=== PATIENT | male | born 1960 | race Caucasian/White ===

== ENCOUNTER 2018-01-13 19:46 | Inpatient (IN) | payer MEDICARE, MEDICAID ==
[2018-01-13 21:41] LABS: EOSINOPHILE ABSOLUTE 0.2 Th/cmm (0.1-0.4); HEMATOCRIT 42.6 % (41.0-60); HEMOGLOBIN 14.4 gm/dL (12-16); LYMPHOCYTE ABSOLUTE 1.6 Th/cmm (1.5-3.0); MEAN CELL VOLUME 91.3 fl (80-99); MEAN CORPUSCULAR HEMOGLOBIN 30.7 pg (26.0-30.0); MEAN CORPUSCULAR HGB CONC 33.7 pg (28.0-36.0); MEAN PLATELET VOLUME 6.6 fl; NEUTROPHILE ABSOLUTE 2.7 Th/cmm (1.8-8.0); PLATELET COUNT 275 Th/cmm (150-400); RED BLOOD COUNT 4.67 Mil/cmm (4.30-5.70); RED CELL DISTRIBUTION WIDTH 12.2 % (11.5-20.0); WHITE BLOOD COUNT 5.5 Th/cmm (4.8-10.8)
[2018-01-13 22:00] LABS: ALB/GLOB RATIO 0.9 (1.0-1.8); ALBUMIN 3.5 gm/dL (4.2-5.5); ALKALINE PHOSPHATASE 79 U/L (34-104); ANION GAP 10.3 (7.0-16.0); BILIRUBIN,TOTAL 0.3 mg/dL (0.3-1.0); BUN - UREA NITROGEN 8 mg/dL (7-25); CALCIUM SERUM 9.1 mg/dL (8.6-10.3); CARBON DIOXIDE 27.9 mEq/L (21.0-31.0); CHLORIDE 102 mEq/L (98-107); CREATININE - SERUM 0.7 mg/dL (0.7-1.3); GFR AFRICAN-AMERICAN > 60.0 ml/min (>90); GFR NON AFRICAN-AMERICAN > 60.0 ml/min; GLUCOSE 105 mg/dL (70-105); MAGNESIUM 2.1 mg/dL (1.9-2.7); PHOSPHOROUS 3.3 mg/dL (2.5-5.0); POTASSIUM SERUM 4.2 mEq/L (3.5-5.1); SGOT 20 U/L (13-39); SGPT/ALT 34 U/L (7-52); SODIUM SERUM 136 mEq/L (136-145); TOTAL PROTEIN,SERUM 7.4 gm/dL (6.0-8.3)
[2018-01-13 22:41] LABS: BAND NEUTROPHILE 0 % (0-10); EOSINOPHIL 2 % (0-5); LYMPHOCYTE 26 % (20-50); MONOCYTE 20 % (2-10); NEUTROPHILS 52 % (40-80)
[2018-01-13] MEDS ORDERED: Lactated Ringer 1,000 ML IV ONE (22:54)
--- NOTE | 2018-01-13 22:56 | ED Physician Chart ---
ED Chief Complaint/HPI - Patient Information Date Seen:: 01/13/18 Time Seen:: 20:45 Chief Complaint:: poor po intake History of Present Illness:: poor po intake Allergies:: Allergies Allergy/AdvReac Type Severity Reaction Status Date / Time No Known Allergies Allergy Verified 01/13/18 20:45 Vitals:: Vital Signs - 8 hr 01/13/18 20:45 Temp 98.7 F HR 72 RR 18 BP 127/94 O2 Sat % 95 Historian:: Medical Records Review:: Nurse's Note Reviewed, Transfer documents Reviewed ED Review of Systems - Review of Systems General/Constitutional: No fever, No chills, No weight loss, No weakness, No diaphoresis, No edema, No loss of appetite, Other (poor po intake) Skin: No skin lesions, No rash, No bruising Head: No headache, No light-headedness Eyes: No loss of vision, No pain, No diplopia ENT: No earache, No nasal drainage, No sore throat, No tinnitus Neck: No neck pain, No swelling, No thyromegaly, No stiffness, No mass noted Cardio Vascular: No chest pain, No palpitations, No PND, No orthopnea, No edema Pulmonary: No SOB, No cough, No sputum, No wheezing GI: No nausea, No vomiting, No diarrhea, No pain, No melena, No hematochezia, No constipation, No hematemesis G/U: No dysuria, No frequency, No hematuria Musculoskeletal: No bone or joint pain, No back pain, No muscle pain Endocrine: No polyuria, No polydipsia Psychiatric: No prior psych history, No depression, No anxiety, No suicidal ideation Hematopoietic: No bruising, No lymphadenopathy Allergic/Immuno: No urticaria, No angioedema Neurological: No syncope, No focal symptoms, No weakness, No paresthesia, No headache, No seizure, No dizziness, No confusion, No vertigo ED Past Medical History - Past Medical History Obtainable: Yes Past Medical History: DM, Seizures, Other (POSTCONCUSSIONAL SYNDROME, CONTRACTED BILATERAL KNEE; SCHIZOPHRENIA; DM TYPE 2, LEGALLY BLIND, EPILEPSY, ENCEPALOPATHY, HX OF FALL.) Psychiatricy History: Schizophrenia Family Medical History - Family Member Mother History Unknown: Yes ED Physical Exam - Physical Examination General/Constitutional: Awake Other Gen/Cons comments:: chronic dysconjugate gaze (patient blind). Other Head comments:: L sided craniotomy scars Eyes: Lids, conjuctiva normal, PERRL Other Skin comments:: L sided craniotomy scars Neck: Nontender, No nuchal rigidity Respiratory: Nl effort/Exclusion, Clear to Auscultation, No Wheeze/Rhonchi/Rales Cardio Vascular: RRR, No murmur, gallop, rubs, NL S1 S2 GI: No tenderness/rebounding/guarding Extremities: No tenderness or effusion Other Extremities comments:: bilateral knee contractures. Misc: Normal back ED Labs/Radiology/EKG Results - Lab Results Results: Laboratory Tests 01/13/18 01/13/18 21:28 21:28 WBC 5.5 RBC 4.67 Hgb 14.4 Hct 42.6 MCV 91.3 MCH 30.7 H MCHC Differential 33.7 RDW 12.2 Plt Count 275 MPV 6.6 Add Manual Diff YES Band Neutrophils % 0 Neutrophils (Manual) 52 Lymphocytes 26 Monocytes 20 H Eosinophils 2 Sodium 136 Potassium 4.2 Chloride 102 Carbon Dioxide 27.9 Anion Gap 10.3 BUN 8 Creatinine 0.7 Est GFR ( Amer) > 60.0 Est GFR (Non-Af Amer) > 60.0 BUN/Creatinine Ratio 11.4 Glucose 105 Calcium 9.1 Phosphorus 3.3 Magnesium 2.1 Total Bilirubin 0.3 AST 20 ALT 34 Alkaline Phosphatase 79 Total Protein 7.4 Albumin 3.5 L Globulin 3.9 Albumin/Globulin Ratio 0.9 L ED Assessment - Assessment General Assessment: spoke with Dr. Rivas about this patient whom he will admit. ED Septic Shock - . Is Septic Shock (SBP<90, OR Lactate>4 mmol\L) present?: No - <6hrs of presentation: Vital Signs: Vital Signs - 8 hr 01/13/18 20:45 Temp 98.7 F HR 72 RR 18 BP 127/94 O2 Sat % 95 ED Reassessment (Disposition) - Reassessment Reassessment Condition:: Unchanged - Diagnosis Diagnosis:: Poor po intake POSTCONCUSSIONAL SYNDROME CONTRACTED BILATERAL KNEES SCHIZOPHRENIA DM TYPE 2 LEGALLY BLIND EPILEPSY ENCEPALOPATHY, HX OF FALL. - Patient Disposition Discharge/Transfer:: Acute Care w/in this hosp Admitted to:: Med/Surg Condition at Disposition:: Stable, Unchanged
[2018-01-14] MEDS: Lactated Ringer 1,000 ML IV SCH ×2 (01:00→13:02)
[2018-01-14 02:30] VITALS: BP 147/85
[2018-01-14] MEDS ORDERED: Non-Formulary Item 1 EA (Acetaminophen [Tylenol] 650 MG) PO PRN (05:25)
[2018-01-14 06:26] LABS: EOSINOPHILE ABSOLUTE 0.1 Th/cmm (0.1-0.4); HEMATOCRIT 43.3 % (41.0-60); HEMOGLOBIN 14.5 gm/dL (12-16); LYMPHOCYTE ABSOLUTE 1.7 Th/cmm (1.5-3.0); MEAN CELL VOLUME 91.7 fl (80-99); MEAN CORPUSCULAR HEMOGLOBIN 30.8 pg (26.0-30.0); MEAN CORPUSCULAR HGB CONC 33.6 pg (28.0-36.0); MEAN PLATELET VOLUME 6.6 fl; MONOCYTE ABSOLUTE 1.5 Th/cmm (0.3-1.0); NEUTROPHILE ABSOLUTE 5.4 Th/cmm (1.8-8.0); PLATELET COUNT 285 Th/cmm (150-400); RED BLOOD COUNT 4.72 Mil/cmm (4.30-5.70); RED CELL DISTRIBUTION WIDTH 12.2 % (11.5-20.0); WHITE BLOOD COUNT 8.7 Th/cmm (4.8-10.8)
[2018-01-14 06:49] LABS: ALB/GLOB RATIO 0.9 (1.0-1.8); ALBUMIN 3.6 gm/dL (4.2-5.5); ALKALINE PHOSPHATASE 73 U/L (34-104); BILIRUBIN,TOTAL 0.4 mg/dL (0.3-1.0); BUN - UREA NITROGEN 7 mg/dL (7-25); CALCIUM SERUM 9.1 mg/dL (8.6-10.3); CARBON DIOXIDE 24.1 mEq/L (21.0-31.0); CHLORIDE 103 mEq/L (98-107); CREATININE - SERUM 0.6 mg/dL (0.7-1.3); GFR AFRICAN-AMERICAN > 60.0 ml/min (>90); GFR NON AFRICAN-AMERICAN > 60.0 ml/min; GLUCOSE 90 mg/dL (70-105); POTASSIUM SERUM 4.1 mEq/L (3.5-5.1); SGOT 22 U/L (13-39); SGPT/ALT 34 U/L (7-52); SODIUM SERUM 136 mEq/L (136-145); TOTAL PROTEIN,SERUM 7.7 gm/dL (6.0-8.3)
[2018-01-14 07:57] LABS: BAND NEUTROPHILE 1 % (0-10); BASOPHIL 2 % (0-3); LYMPHOCYTE 21 % (20-50); MONOCYTE 17 % (2-10); NEUTROPHILS 59 % (40-80); PLATELET ESTIMATE ADEQUATE (NORMAL)
[2018-01-14] MEDS ORDERED: Non-Formulary Item 1 EA (Dextran 70/Hypromellose [Artificial Tears] 1 EACH) OP SCH (09:00)
[2018-01-14] MEDS: Multivitamin w/ Minerals Tab PO SCH (09:10)
[2018-01-14] MEDS: Polyvinyl Alcohol Ophth Soln 15 mL Bottle EACH EYE SCH ×2 (09:12→16:35)
[2018-01-15] MEDS: Lactated Ringer 1,000 ML IV SCH (06:45)
[2018-01-15] MEDS: Multivitamin w/ Minerals Tab PO SCH (09:04)
[2018-01-15] MEDS: Polyvinyl Alcohol Ophth Soln 15 mL Bottle EACH EYE SCH ×2 (09:04→16:29)
[2018-01-15] MEDS: D5-0.45NS 1,000 ML IV SCH ×2 (10:41→20:40)
--- NOTE | 2018-01-15 11:25 | History & Physical ---
ADMIT DATE: 01/13/2018 CHIEF COMPLAINT: Poor p.o. intake. HISTORY OF PRESENT ILLNESS: The patient is a 49-year-old white male who is a resident of a half-way facility. The patient was transferred over here due to poor p.o. intake. REVIEW OF SYSTEMS: See history of present illness. PAST MEDICAL HISTORY: Diabetes mellitus, seizure disorder, postconcussion syndrome, contracted bilateral knees, schizophrenia, legally blind, epilepsy, and encephalopathy. PAST SURGICAL HISTORY: Negative. FAMILY HISTORY: Noncontributory. MEDICATIONS: See medication reconciliation form. ALLERGIES: No known allergies. SOCIAL HISTORY: No reports of smoking, drinking, or IV drug use. The patient is a resident of a half-way facility. PHYSICAL EXAMINATION: GENERAL: The patient is awake, no acute distress. VITAL SIGNS: On admission is temperature 98.7, pulse 72, blood pressure 127/94, respiratory rate 18, O2 saturation 95% on room air. HEENT: Normocephalic and atraumatic. Extraocular movements are intact. Pupils are equal. Oropharynx is clear. Chronic disconjugate gaze. Craniotomy scars. NECK: Supple. No thyromegaly. No lymphadenopathy. CARDIAC: S1, S2. RESPIRATORY: Clear. No wheeze or rhonchi. GASTROINTESTINAL: Abdomen is soft, nontender. Positive bowel sounds. BACK: No tenderness. GENITOURINARY: No CVA tenderness. No suprapubic tenderness. EXTREMITIES: Equal pulses bilaterally. No cyanosis, clubbing, or edema. Bilateral knees contracted. NEUROLOGIC: Unable to assess due to the patient's dementia. LABORATORY DATA: On admission, Hematology: WBC 5.5, hemoglobin 14.4, hematocrit 42.6, platelet count of 225, 20% monocytes. Chemistry: Sodium 136, potassium 4.2, chloride 102, bicarbonate 27, anion gap 10, BUN 8, creatinine 0.7, GFR is more than 60. Glucose 105, calcium 9.1, phosphorus 3.3, mag 2.1, total bilirubin 0.3, AST 20, ALT 34, alkaline phosphatase 79, total protein 7.4, albumin 3.5, globulin 3.9. MICROBIOLOGY: No new microbiology results. RADIOLOGY: No new results. IMPRESSION: 1. Failure to thrive. 2. Postconcussion syndrome. 3. Contracted bilateral knees. 4. Schizophrenia. 5. Diabetes mellitus type 2. 6. Legally blind. 7. Epilepsy. 8. Encephalopathy. PLAN: The patient admitted to Med/Surg unit at [facility]. We will obtain Infectious Disease consultation. The patient is ordered for urine culture. JOB# [id number]
[2018-01-15 12:12] LABS: HEP A AB IGM Negative (Negative); HEP B CORE IGM Negative (Negative); HEP B SURFACE AG QL Negative (Negative); HEP C ANTIBODY >11.0 s/co ratio (0.0-0.9)
--- NOTE | 2018-01-16 00:17 | Progress Notes ---
DATE: 01/15/2018 SUBJECTIVE: The patient is awake. The patient is on IV fluids. The patient has been recommended for pureed diet. Per nursing services, the patient still has poor p.o. intake. PHYSICAL EXAMINATION: VITAL SIGNS: Temperature 97.2, pulse 66, blood pressure 149/87, pulse ox 97% on room air. CARDIOVASCULAR: S1 and S2. RESPIRATORY: Clear. ABDOMEN: Soft, positive bowel sounds. LABORATORY DATA: Hematology: WBC 8.7, hemoglobin 14.5, hematocrit 43.3, platelet count 285, 17% monocytes. Chemistry: Sodium 136, potassium 4.1, chloride 103, bicarb 24, anion gap 13, BUN 7, creatinine 0.6, GFR is more than 60, glucose 90, calcium 9.1, total bilirubin 0.4, AST 22, ALT 34, alkaline phosphatase 73, total protein 7.7, albumin 3.6, globulin 4.1. HIV test negative. Urine culture pending. ASSESSMENT: 1. Failure to thrive. 2. Hypoalbuminemia. 3. Postconcussion syndrome. 4. Bilateral knees contracted. 5. Schizophrenia. 6. Diabetes type 2. 7. Legal blindness. 8. Epilepsy. 9. Encephalopathy. PLAN: We will change IV fluids from lactated ringer to D5 half NS due to poor p.o. intake. We will obtain a GI consultation regarding poor p.o. intake. JOB# [id number] MTDD
--- NOTE | 2018-01-16 01:37 | Consultation ---
DATE OF CONSULTATION: 01/15/2018 REASON FOR CONSULTATION: Failure to thrive. HISTORY OF PRESENT ILLNESS: This consult was obtained through the request of Dr. Rivas for this 57-year-old with history of diabetes, seizure disorder, post-concussion syndrome, schizophrenia, legally blind, seizure, encephalopathy, presented to the hospital from the nursing facility for decreased oral intake and failure to thrive. The patient is responsive, but not oriented. PAST MEDICAL HISTORY: Diabetes, seizure, postconcussion syndrome, schizophrenia, encephalopathy. PAST SURGICAL HISTORY: Had big abdominal scar, but does not know the etiology of it. SOCIAL HISTORY: The patient is nonsmoker, nonalcoholic, no IV drug abuser. FAMILY HISTORY: Noncontributory and unobtainable. REVIEW OF SYSTEMS: Unobtainable. ALLERGIES: No known drug allergies. MEDICATIONS: The patient is on Tylenol, Tegretol, Depakote, Namenda. PHYSICAL EXAMINATION: GENERAL: The patient is awake, responsive, not oriented. VITAL SIGNS: Blood pressure is 140/87, heart rate 66, respiratory rate 18, temperature is 98.8. HEAD AND NECK: Oral cavity, no lesion. NECK: Supple. CHEST: Good air entry. LUNGS: Clear to auscultation. CARDIOVASCULAR: Regular rate and rhythm. No murmur or gallop. ABDOMEN: Soft, positive bowel sounds. Abdomen is not tender. There is a scar of previous surgery. Bowel sounds are present. LOWER EXTREMITIES: No edema. CENTRAL NERVOUS SYSTEM: The patient is moving 4 extremities. LABORATORY DATA: CBC was unremarkable. Chemistry showed albumin of 3.6. IMPRESSION: A 57-year-old with failure to thrive. 1. Failure to thrive. We will try to encourage oral intake, will try to get the patient Remeron, add Ensure or Jevity and monitor his caloric intake and if not improving, then consider a G-tube. Other medical problems such as schizoaffective disorder, seizure disorder, diabetes, etc., as per Dr. Rivas. Thank you Dr. Patel for allowing us to participate in the care of the patient. If you have any further questions, please let me know. JOB# [id number]
[2018-01-16 06:25] LABS: HEMATOCRIT 43.4 % (41.0-60); HEMOGLOBIN 14.5 gm/dL (12-16); MEAN CELL VOLUME 90.5 fl (80-99); MEAN CORPUSCULAR HEMOGLOBIN 30.3 pg (26.0-30.0); MEAN CORPUSCULAR HGB CONC 33.4 pg (28.0-36.0); MEAN PLATELET VOLUME 6.6 fl; PLATELET COUNT 299 Th/cmm (150-400); WHITE BLOOD COUNT 7.9 Th/cmm (4.8-10.8)
[2018-01-16 07:00] LABS: AMPHETAMINE URINE NEGATIVE (NEGATIVE); BARBITURATES URINE NEGATIVE (NEGATIVE); BENZODIAZEPINES QUAL URINE NEGATIVE (NEGATIVE); CANNABINOID THC NEGATIVE (NEGATIVE); COCAINE METABOLITE QUAL URINE NEGATIVE (NEGATIVE); METHADONE URINE NEGATIVE (NEGATIVE); METHAMPHETAMINES QUAL URINE NEGATIVE (NEGATIVE); OPIATES (MORPHINE) QUAL. URINE NEGATIVE (NEGATIVE); PHENCYCLIDINE (PCP) URINE NEGATIVE (NEGATIVE); TRICYCLICS (TCA) QUAL. URINE NEGATIVE (NEGATIVE)
[2018-01-16 07:12] LABS: ANION GAP 12.2 (7.0-16.0); BAND NEUTROPHILE 0 % (0-10); BASOPHIL 0 % (0-3); BUN - UREA NITROGEN 11 mg/dL (7-25); CALCIUM SERUM 9.1 mg/dL (8.6-10.3); CARBON DIOXIDE 26.7 mEq/L (21.0-31.0); CHLORIDE 102 mEq/L (98-107); CREATININE - SERUM 0.7 mg/dL (0.7-1.3); EOSINOPHIL 8 % (0-5); GFR AFRICAN-AMERICAN > 60.0 ml/min (>90); GFR NON AFRICAN-AMERICAN > 60.0 ml/min; GLUCOSE 91 mg/dL (70-105); LYMPHOCYTE 22 % (20-50); MONOCYTE 17 % (2-10); NEUTROPHILS 53 % (40-80); POTASSIUM SERUM 3.9 mEq/L (3.5-5.1); SODIUM SERUM 137 mEq/L (136-145)
[2018-01-16 08:34] LABS: URINE SOURCE CLEAN C
[2018-01-16 08:42] LABS: URINE BILIRUBIN NEGATIVE (NEGATIVE); URINE BLOOD NEGATIVE (NEGATIVE); URINE GLUCOSE (UA) NEGATIVE (NEGATIVE); URINE KETONE NEGATIVE (NEGATIVE); URINE LEUKOCYTE ESTERASE MODERATE (NEGATIVE); URINE NITRATE NEGATIVE (NEGATIVE); URINE PROTEIN NEGATIVE (NEGATIVE); URINE UROBILINOGEN 0.2 E.U./dL (0.2 - 1.0)
[2018-01-16] MEDS: Multivitamin w/ Minerals Tab PO SCH (09:20)
[2018-01-16] MEDS: Polyvinyl Alcohol Ophth Soln 15 mL Bottle EACH EYE SCH ×2 (09:20→16:52)
[2018-01-16 09:24] LABS: URINE CLARITY SLIGHTLY HAZY (CLEAR); URINE COLOR YELLOW; URINE MICROSCOPIC INDICATED? YES
[2018-01-16 09:25] LABS: URINE BACTERIA MODERATE /hpf (NONE SEEN); URINE EPITHELIAL CELLS OCCASIONAL /lpf (FEW); URINE RBC 0-2 /hpf (0-5)
[2018-01-16] MEDS: cefTRIAXone 1 GM in Sodium Chloride 0.9% 50 ML IV SCH (09:47)
--- NOTE | 2018-01-16 21:37 | GI Progress Note ---
Subjective - Review of Systems Service Date: 01/16/18 Events since last encounter: No events Objective - Results Result Diagrams: 01/16/18 06:10 01/16/18 06:10 Recent Labs: Laboratory Last Values WBC 7.9 Th/cmm (4.8-10.8) 01/16/18 06:10 RBC 4.80 Mil/cmm (4.30-5.70) 01/16/18 06:10 Hgb 14.5 gm/dL (12-16) 01/16/18 06:10 Hct 43.4 % (41.0-60) 01/16/18 06:10 MCV 90.5 fl (80-99) 01/16/18 06:10 MCH 30.3 pg (26.0-30.0) H 01/16/18 06:10 MCHC Differential 33.4 pg (28.0-36.0) 01/16/18 06:10 RDW 12.0 % (11.5-20.0) 01/16/18 06:10 Plt Count 299 Th/cmm (150-400) 01/16/18 06:10 MPV 6.6 fl 01/16/18 06:10 Add Manual Diff YES 01/16/18 06:10 Band Neutrophils % 0 % (0-10) 01/16/18 06:10 Neutrophils (Manual) 53 % (40-80) 01/16/18 06:10 Lymphocytes 22 % (20-50) 01/16/18 06:10 Monocytes 17 % (2-10) H 01/16/18 06:10 Eosinophils 8 % (0-5) H 01/16/18 06:10 Basophils 0 % (0-3) 01/16/18 06:10 Platelet Estimate ADEQUATE (NORMAL) 01/14/18 06:00 Sodium 137 mEq/L (136-145) 01/16/18 06:10 Potassium 3.9 mEq/L (3.5-5.1) 01/16/18 06:10 Chloride 102 mEq/L (98-107) 01/16/18 06:10 Carbon Dioxide 26.7 mEq/L (21.0-31.0) 01/16/18 06:10 Anion Gap 12.2 (7.0-16.0) 01/16/18 06:10 BUN 11 mg/dL (7-25) 01/16/18 06:10 Creatinine 0.7 mg/dL (0.7-1.3) 01/16/18 06:10 Est GFR ( Amer) > 60.0 ml/min (>90) 01/16/18 06:10 Est GFR (Non-Af Amer) > 60.0 ml/min 01/16/18 06:10 BUN/Creatinine Ratio 15.7 01/16/18 06:10 Glucose 91 mg/dL (70-105) 01/16/18 06:10 Calcium 9.1 mg/dL (8.6-10.3) 01/16/18 06:10 Phosphorus 3.3 mg/dL (2.5-5.0) 01/13/18 21:28 Magnesium 2.1 mg/dL (1.9-2.7) 01/13/18 21:28 Total Bilirubin 0.4 mg/dL (0.3-1.0) 01/14/18 06:00 AST 22 U/L (13-39) 01/14/18 06:00 ALT 34 U/L (7-52) 01/14/18 06:00 Alkaline Phosphatase 73 U/L (34-104) 01/14/18 06:00 Total Protein 7.7 gm/dL (6.0-8.3) 01/14/18 06:00 Albumin 3.6 gm/dL (4.2-5.5) L 01/14/18 06:00 Globulin 4.1 gm/dL 01/14/18 06:00 Albumin/Globulin Ratio 0.9 (1.0-1.8) L 01/14/18 06:00 TSH 2.18 uIU/ml (0.34-5.60) 01/13/18 21:28 Urine Source CLEAN C 01/16/18 06:33 Urine Color YELLOW 01/16/18 06:33 Urine Clarity SLIGHTLY HAZY (CLEAR) 01/16/18 06:33 Urine pH 6.0 (4.6 - 8.0) 01/16/18 06:33 Ur Specific [place] <= 1.005 (1.005-1.030) 01/16/18 06:33 Urine Protein NEGATIVE mg/dL (NEGATIVE) 01/16/18 06:33 Urine Glucose (UA) NEGATIVE mg/dL (NEGATIVE) 11/12/18 06:33 Urine Ketones NEGATIVE mg/dL (NEGATIVE) 01/16/18 06:33 Urine Blood NEGATIVE (NEGATIVE) 01/16/18 06:33 Urine Nitrate NEGATIVE (NEGATIVE) 01/16/18 06:33 Urine Bilirubin NEGATIVE (NEGATIVE) 01/16/18 06:33 Urine Urobilinogen 0.2 E.U./dL (0.2 - 1.0) 01/16/18 06:33 Ur Leukocyte Esterase MODERATE (NEGATIVE) H 01/16/18 06:33 Urine RBC 0-2 /hpf (0-5) H 01/16/18 06:33 Urine WBC 6-10 /hpf (0-5) 01/16/18 06:33 Ur Epithelial Cells OCCASIONAL /lpf (FEW) 01/16/18 06:33 Urine Bacteria MODERATE /hpf (NONE SEEN) H 01/16/18 06:33 Urine Opiates Screen NEGATIVE (NEGATIVE) 01/16/18 06:33 Urine Methadone Screen NEGATIVE (NEGATIVE) 01/16/18 06:33 Ur Barbiturates Screen NEGATIVE (NEGATIVE) 01/16/18 06:33 Ur Tricyclics Screen NEGATIVE (NEGATIVE) 01/16/18 06:33 Ur Phencyclidine Scrn NEGATIVE (NEGATIVE) 01/16/18 06:33 Amphetamines Screen NEGATIVE (NEGATIVE) 01/16/18 06:33 U Methamphetamines Scrn NEGATIVE (NEGATIVE) 01/16/18 06:33 U Benzodiazepines Scrn NEGATIVE (NEGATIVE) 01/16/18 06:33 U Cocaine Metab Screen NEGATIVE (NEGATIVE) 01/16/18 06:33 U Cannabinoids Screen NEGATIVE (NEGATIVE) 01/16/18 06:33 Hepatitis A IgM Ab Negative (Negative) 01/14/18 09:20 Hep Bs Antigen Negative (Negative) 01/14/18 09:20 Hep B Core IgM Ab Negative (Negative) 01/14/18 09:20 Hepatitis C Antibody >11.0 s/co ratio (0.0-0.9) H 01/14/18 09:20 HIV 1&2 Antibody Screen NEGATIVE (NEG) 01/14/18 06:00 - Physical Exam Vitals and I&O: Vital Signs Temp 97.9 F 01/16/18 20:00 Pulse 68 01/16/18 20:00 Resp 17 01/16/18 20:00 BP 135/90 01/16/18 20:00 Pulse Ox 97 01/16/18 20:00 Intake & Output 01/16/18 01/16/18 01/17/18 06:59 18:59 06:59 Intake Total 1098.333 450 Balance 1098.333 450 Weight (lbs) 87.679 kg 89.947 kg Intake: Intake, IV Amount 998.333 D5-0.45NS 1,000 ml @ 100 998.333 mls/hr IV .Q10H [facility] Rx#: [id number] Oral 100 450 Other: # Voids 3 3 # Bowel Movements 0 0 Weight Source Bedscale Bedscale Active Medications: Current Medications Acetaminophen (Tylenol) 650 mg PO Q4H PRN PRN Reason: TEMP > 101.NTE 3GM/24HRS Stop: 03/15/18 05:33 Artificial Tears (Artificial Tears Ophth Soln) 1 drop EACH EYE BID [facility] Stop: 03/15/18 08:59 Last Admin: 01/16/18 16:52 Dose: 1 drop Carbamazepine (Tegretol) 200 mg PO TID [facility]; Protocol Stop: 03/15/18 08:59 Last Admin: 01/16/18 20:44 Dose: 200 mg Divalproex Sodium (Depakote Sprinkle) 375 mg PO BID [facility]; Protocol Stop: 03/15/18 08:59 Last Admin: 01/16/18 16:52 Dose: 375 mg Dextrose/Sodium Chloride (D5-0.45ns) 1,000 mls @ 100 mls/hr IV .Q10H [facility] Stop: 03/16/18 09:44 Last Admin: 01/15/18 20:40 Dose: 100 mls/hr Ceftriaxone Sodium 1 gm/ (Sodium Chloride) 50 mls @ 100 mls/hr IV Q24HR [facility] Stop: 03/17/18 09:59 Last Admin: 01/16/18 09:47 Dose: 100 mls/hr Memantine (Namenda) 10 mg PO DAILY [facility] Stop: 03/15/18 08:59 Last Admin: 01/16/18 09:20 Dose: 10 mg Mirtazapine (Remeron) 15 mg PO HS [facility]; Protocol Stop: 03/16/18 20:59 Last Admin: 01/16/18 20:43 Dose: 15 mg General: Alert, No acute distress HEENT: Atraumatic, PERRLA, EOMI Neck: Supple Cardiovascular: Regular rate Abdomen: Bowel sounds, Soft, no Tender, no Hepatomegaly, no Splenomegaly, no Distended, no Rebound, no Mass, no Guarding, no Drain, no Obese, no Catheter, no Other Assessment/Plan - Assessment Assessment: 1. Failure to thrive 2. Protein Calorie Malnutrition 3. Psychosis -Continue PO encouragement -Pt ate 30-40% of his meals today, continue remeron -Will follow
--- NOTE | 2018-01-16 21:52 | Progress Notes ---
DATE: 01/16/2018 SUBJECTIVE: The patient is awake. The patient is on IV fluids. Per staff, the patient's appetite has improved. OBJECTIVE: VITAL SIGNS: Temperature 97.3, pulse is 90, BP 134/78, respiration 18, O2 sat 98% on room air. CARDIOVASCULAR: S1 and S2. RESPIRATORY: Clear. ABDOMEN: Soft. Positive bowel sounds. LABORATORY DATA: Hematology: WBC of 7.9, hemoglobin 14.5, hematocrit 43.4, platelet count of 299, 17% monocytes, 8% neutrophils. Blood panel: Sodium 137, potassium 3.9, chloride 102, bicarbonate per labs, anion gap 12, BUN 11, creatinine 0.7. GFR is more than 60, glucose 91, calcium 9.1. Urinalysis, moderate leukocyte esterase, moderate bacteria. Urine drug screen negative. Hepatitis panel, hepatitis C antibody more than 11. ASSESSMENT: 1. Failure to thrive (improved). 2. Urinary tract infection. 3. History of hepatitis C. 4. Postconcussion syndrome. 5. Bilateral knee is contracted. 6. Schizophrenia. 7. Diabetes mellitus type 2. 8. Legal blindness. 9. Epilepsy. 10. Encephalopathy. PLAN: Continue medication. We will obtain urine culture. Start the patient on IV antibiotics. We will obtain ID consultation. If the patient's oral intake is not improved, then the patient may be required G-tube as per GI. JOB# [id number] MTDD
[2018-01-17] MEDS: D5-0.45NS 1,000 ML IV SCH (03:39)
[2018-01-17 06:35] LABS: HEMATOCRIT 44.1 % (41.0-60); HEMOGLOBIN 14.3 gm/dL (12-16); MEAN CELL VOLUME 91.3 fl (80-99); MEAN CORPUSCULAR HEMOGLOBIN 29.6 pg (26.0-30.0); MEAN CORPUSCULAR HGB CONC 32.4 pg (28.0-36.0); MEAN PLATELET VOLUME 6.8 fl; PLATELET COUNT 265 Th/cmm (150-400); RED BLOOD COUNT 4.83 Mil/cmm (4.30-5.70); RED CELL DISTRIBUTION WIDTH 12.3 % (11.5-20.0); WHITE BLOOD COUNT 5.2 Th/cmm (4.8-10.8)
[2018-01-17 07:05] LABS: BAND NEUTROPHILE 2 % (0-10); BASOPHIL 2 % (0-3); EOSINOPHIL 5 % (0-5); LYMPHOCYTE 36 % (20-50); MONOCYTE 16 % (2-10); NEUTROPHILS 39 % (40-80); PLATELET ESTIMATE ADEQUATE (NORMAL)
[2018-01-17 07:18] LABS: ANION GAP 11.7 (7.0-16.0); BUN - UREA NITROGEN 9 mg/dL (7-25); CALCIUM SERUM 8.9 mg/dL (8.6-10.3); CARBON DIOXIDE 28.1 mEq/L (21.0-31.0); CHLORIDE 101 mEq/L (98-107); CREATININE - SERUM 0.7 mg/dL (0.7-1.3); GFR AFRICAN-AMERICAN > 60.0 ml/min (>90); GFR NON AFRICAN-AMERICAN > 60.0 ml/min; GLUCOSE 107 mg/dL (70-105); POTASSIUM SERUM 3.8 mEq/L (3.5-5.1); SODIUM SERUM 137 mEq/L (136-145)
[2018-01-17 08:41] LABS: ESR SEDIMENTATION SED RATE 31 mm/hr (0-20)
[2018-01-17] MEDS: Multivitamin w/ Minerals Tab PO SCH (10:13)
[2018-01-17] MEDS: cefTRIAXone 1 GM in Sodium Chloride 0.9% 50 ML IV SCH (10:13)
[2018-01-17] MEDS: Polyvinyl Alcohol Ophth Soln 15 mL Bottle EACH EYE SCH ×2 (10:16→17:25)
--- NOTE | 2018-01-17 11:59 | GI Progress Note ---
Subjective - Review of Systems Service Date: 01/17/18 Events since last encounter: No events ate some juice, pudding and took his meds today Objective - Results Result Diagrams: 01/17/18 06:05 01/17/18 06:05 Recent Labs: Laboratory Last Values WBC 5.2 Th/cmm (4.8-10.8) 01/17/18 06:05 RBC 4.83 Mil/cmm (4.30-5.70) 01/17/18 06:05 Hgb 14.3 gm/dL (12-16) 01/17/18 06:05 Hct 44.1 % (41.0-60) 01/17/18 06:05 MCV 91.3 fl (80-99) 01/17/18 06:05 MCH 29.6 pg (26.0-30.0) 01/17/18 06:05 MCHC Differential 32.4 pg (28.0-36.0) 01/17/18 06:05 RDW 12.3 % (11.5-20.0) 01/17/18 06:05 Plt Count 265 Th/cmm (150-400) 01/17/18 06:05 MPV 6.8 fl 01/17/18 06:05 Add Manual Diff YES 01/17/18 06:05 Band Neutrophils % 2 % (0-10) 01/17/18 06:05 Neutrophils (Manual) 39 % (40-80) L 01/17/18 06:05 Lymphocytes 36 % (20-50) 01/17/18 06:05 Monocytes 16 % (2-10) H 01/17/18 06:05 Eosinophils 5 % (0-5) 01/17/18 06:05 Basophils 2 % (0-3) 01/17/18 06:05 Platelet Estimate ADEQUATE (NORMAL) 01/17/18 06:05 ESR 31 mm/hr (0-20) H 01/17/18 06:05 Sodium 137 mEq/L (136-145) 01/17/18 06:05 Potassium 3.8 mEq/L (3.5-5.1) 01/17/18 06:05 Chloride 101 mEq/L (98-107) 01/17/18 06:05 Carbon Dioxide 28.1 mEq/L (21.0-31.0) 01/17/18 06:05 Anion Gap 11.7 (7.0-16.0) 01/17/18 06:05 BUN 9 mg/dL (7-25) 01/17/18 06:05 Creatinine 0.7 mg/dL (0.7-1.3) 01/17/18 06:05 Est GFR ( Amer) > 60.0 ml/min (>90) 01/17/18 06:05 Est GFR (Non-Af Amer) > 60.0 ml/min 01/17/18 06:05 BUN/Creatinine Ratio 12.9 01/17/18 06:05 Glucose 107 mg/dL (70-105) H 01/17/18 06:05 Calcium 8.9 mg/dL (8.6-10.3) 01/17/18 06:05 Phosphorus 3.3 mg/dL (2.5-5.0) 01/13/18 21:28 Magnesium 2.1 mg/dL (1.9-2.7) 01/13/18 21:28 Total Bilirubin 0.4 mg/dL (0.3-1.0) 01/14/18 06:00 AST 22 U/L (13-39) 01/14/18 06:00 ALT 34 U/L (7-52) 01/14/18 06:00 Alkaline Phosphatase 73 U/L (34-104) 01/14/18 06:00 C-Reactive Protein 0.7 mg/dL (0.0-0.9) 01/17/18 06:05 Total Protein 7.7 gm/dL (6.0-8.3) 01/14/18 06:00 Albumin 3.6 gm/dL (4.2-5.5) L 01/14/18 06:00 Globulin 4.1 gm/dL 01/14/18 06:00 Albumin/Globulin Ratio 0.9 (1.0-1.8) L 01/14/18 06:00 TSH 2.18 uIU/ml (0.34-5.60) 01/13/18 21:28 Urine Source CLEAN C 01/16/18 06:33 Urine Color YELLOW 01/16/18 06:33 Urine Clarity SLIGHTLY HAZY (CLEAR) 01/16/18 06:33 Urine pH 6.0 (4.6 - 8.0) 01/16/18 06:33 Ur Specific [place] <= 1.005 (1.005-1.030) 01/16/18 06:33 Urine Protein NEGATIVE mg/dL (NEGATIVE) 01/16/18 06:33 Urine Glucose (UA) NEGATIVE mg/dL (NEGATIVE) 01/16/18 06:33 Urine Ketones NEGATIVE mg/dL (NEGATIVE) 01/16/18 06:33 Urine Blood NEGATIVE (NEGATIVE) 01/16/18 06:33 Urine Nitrate NEGATIVE (NEGATIVE) 01/16/18 06:33 Urine Bilirubin NEGATIVE (NEGATIVE) 01/16/18 06:33 Urine Urobilinogen 0.2 E.U./dL (0.2 - 1.0) 01/16/18 06:33 Ur Leukocyte Esterase MODERATE (NEGATIVE) H 01/16/18 06:33 Urine RBC 0-2 /hpf (0-5) H 01/16/18 06:33 Urine WBC 6-10 /hpf (0-5) 01/16/18 06:33 Ur Epithelial Cells OCCASIONAL /lpf (FEW) 01/16/18 06:33 Urine Bacteria MODERATE /hpf (NONE SEEN) H 01/16/18 06:33 Urine Opiates Screen NEGATIVE (NEGATIVE) 01/16/18 06:33 Urine Methadone Screen NEGATIVE (NEGATIVE) 01/16/18 06:33 Ur Barbiturates Screen NEGATIVE (NEGATIVE) 01/16/18 06:33 Ur Tricyclics Screen NEGATIVE (NEGATIVE) 01/16/18 06:33 Ur Phencyclidine Scrn NEGATIVE (NEGATIVE) 01/16/18 06:33 Amphetamines Screen NEGATIVE (NEGATIVE) 01/16/18 06:33 U Methamphetamines Scrn NEGATIVE (NEGATIVE) 01/16/18 06:33 U Benzodiazepines Scrn NEGATIVE (NEGATIVE) 01/16/18 06:33 U Cocaine Metab Screen NEGATIVE (NEGATIVE) 01/16/18 06:33 U Cannabinoids Screen NEGATIVE (NEGATIVE) 01/16/18 06:33 Hepatitis A IgM Ab Negative (Negative) 01/14/18 09:20 Hep Bs Antigen Negative (Negative) 01/14/18 09:20 Hep B Core IgM Ab Negative (Negative) 01/14/18 09:20 Hepatitis C Antibody >11.0 s/co ratio (0.0-0.9) H 01/14/18 09:20 HIV 1&2 Antibody Screen NEGATIVE (NEG) 01/14/18 06:00 - Physical Exam Vitals and I&O: Vital Signs Temp 97.2 F 01/17/18 04:00 Pulse 59 01/17/18 04:00 Resp 18 01/17/18 11:31 BP 165/95 01/17/18 04:00 Pulse Ox 97 01/17/18 04:00 Intake & Output 01/16/18 01/17/18 01/17/18 18:59 06:59 18:59 Intake Total 500 250 Balance 500 250 Weight (lbs) 89.947 kg 89.403 kg Intake: Intake, IV Amount 50 cefTRIAXone 1 gm In 50 Sodium Chloride 0.9% 50 ml @ 100 mls/hr IV Q24HR [facility] Rx#:[id number] Oral 450 250 Other: # Voids 3 2 # Bowel Movements 0 Weight Source Bedscale Bedscale Active Medications: Current Medications Acetaminophen (Tylenol) 650 mg PO Q4H PRN PRN Reason: TEMP > 101.NTE 3GM/24HRS Stop: 03/15/18 05:33 Artificial Tears (Artificial Tears Ophth Soln) 1 drop EACH EYE BID [facility] Stop: 03/15/18 08:59 Last Admin: 01/17/18 10:16 Dose: 1 drop Carbamazepine (Tegretol) 200 mg PO TID [facility]; Protocol Stop: 03/15/18 08:59 Last Admin: 01/17/18 10:13 Dose: 200 mg Divalproex Sodium (Depakote Sprinkle) 375 mg PO BID [facility]; Protocol Stop: 03/15/18 08:59 Last Admin: 01/17/18 10:12 Dose: 375 mg Dextrose/Sodium Chloride (D5-0.45ns) 1,000 mls @ 100 mls/hr IV .Q10H [facility] Stop: 03/16/18 09:44 Last Admin: 01/17/18 03:39 Dose: 100 mls/hr Ceftriaxone Sodium 1 gm/ (Sodium Chloride) 50 mls @ 100 mls/hr IV Q24HR [facility] Stop: 03/17/18 09:59 Last Admin: 01/17/18 10:13 Dose: 100 mls/hr Memantine (Namenda) 10 mg PO DAILY [facility] Stop: 03/15/18 08:59 Last Admin: 01/17/18 10:13 Dose: 10 mg Mirtazapine (Remeron) 15 mg PO HS [facility]; Protocol Stop: 03/16/18 20:59 Last Admin: 01/16/18 20:43 Dose: 15 mg General: Alert, No acute distress HEENT: Atraumatic, PERRLA, EOMI Neck: Supple Cardiovascular: Regular rate Abdomen: Bowel sounds, Soft, no Tender, no Hepatomegaly, no Splenomegaly, no Distended, no Rebound, no Mass, no Guarding, no Drain, no Obese, no Catheter, no Other Assessment/Plan - Assessment Assessment: 1. Failure to thrive 2. Protein Calorie Malnutrition 3. Psychosis -Continue PO encouragement -Abdominal u/s ordered per primary team -continue remeron -Will follow
--- NOTE | 2018-01-17 13:37 | Diagnostic Imaging Report ---
Abdominal ultrasound HISTORY: Hepatitis C The exam the liver demonstrates a slightly echogenic hepatic parenchyma. Significance should be correlated with liver function tests. No focal lesions. The gallbladder cannot be seen. The finding should be correlated with patient's surgical history. If the gallbladder has not been removed and the patient is fasting, nonvisualization is considered abnormal and suggests underlying gallbladder disease. The common bile duct cannot be clearly seen. No obvious abnormality seen in the region of the pancreas. Suboptimal delineation the entire margins of the right kidney. No obvious focal lesions or hydronephrosis. Left kidney appears normal. The spleen is normal in size. No other definite retroperitoneal or intra-abdominal abnormalities. IMPRESSION: 1. Limited exam due to considerable bowel gas and difficulty in patient cooperation. 2. Nonvisualization the gallbladder. The findings should be correlated with patient's surgical history. If the gallbladder has not been removed and the patient is fasting, nonvisualization is considered abnormal and suggests underlying gallbladder disease. 3. Slight increase in hepatic parenchymal echogenicity. The significance should be correlated with liver function tests.
--- NOTE | 2018-01-17 15:33 | General Progress Note ---
Subjective - Review of Systems Service Date: 01/17/18 Subjective: * Patient is on IV abx * Patient is tolerating po intake * Awaiting urine culture results * Awaiting ID evaluation Objective - Results Result Diagrams: 01/17/18 06:05 01/17/18 06:05 Recent Labs: Laboratory Last Values WBC 5.2 Th/cmm (4.8-10.8) 01/17/18 06:05 RBC 4.83 Mil/cmm (4.30-5.70) 01/17/18 06:05 Hgb 14.3 gm/dL (12-16) 01/17/18 06:05 Hct 44.1 % (41.0-60) 01/17/18 06:05 MCV 91.3 fl (80-99) 01/17/18 06:05 MCH 29.6 pg (26.0-30.0) 01/17/18 06:05 MCHC Differential 32.4 pg (28.0-36.0) 01/17/18 06:05 RDW 12.3 % (11.5-20.0) 01/17/18 06:05 Plt Count 265 Th/cmm (150-400) 01/17/18 06:05 MPV 6.8 fl 01/17/18 06:05 Add Manual Diff YES 01/17/18 06:05 Band Neutrophils % 2 % (0-10) 01/17/18 06:05 Neutrophils (Manual) 39 % (40-80) L 01/17/18 06:05 Lymphocytes 36 % (20-50) 01/17/18 06:05 Monocytes 16 % (2-10) H 01/17/18 06:05 Eosinophils 5 % (0-5) 01/17/18 06:05 Basophils 2 % (0-3) 01/17/18 06:05 Platelet Estimate ADEQUATE (NORMAL) 01/17/18 06:05 ESR 31 mm/hr (0-20) H 01/17/18 06:05 Sodium 137 mEq/L (136-145) 01/17/18 06:05 Potassium 3.8 mEq/L (3.5-5.1) 01/17/18 06:05 Chloride 101 mEq/L (98-107) 01/17/18 06:05 Carbon Dioxide 28.1 mEq/L (21.0-31.0) 01/17/18 06:05 Anion Gap 11.7 (7.0-16.0) 01/17/18 06:05 BUN 9 mg/dL (7-25) 01/17/18 06:05 Creatinine 0.7 mg/dL (0.7-1.3) 01/17/18 06:05 Est GFR ( Amer) > 60.0 ml/min (>90) 01/17/18 06:05 Est GFR (Non-Af Amer) > 60.0 ml/min 01/17/18 06:05 BUN/Creatinine Ratio 12.9 01/17/18 06:05 Glucose 107 mg/dL (70-105) H 01/17/18 06:05 Calcium 8.9 mg/dL (8.6-10.3) 01/17/18 06:05 Phosphorus 3.3 mg/dL (2.5-5.0) 01/13/18 21:28 Magnesium 2.1 mg/dL (1.9-2.7) 01/13/18 21:28 Total Bilirubin 0.4 mg/dL (0.3-1.0) 01/14/18 06:00 AST 22 U/L (13-39) 01/14/18 06:00 ALT 34 U/L (7-52) 01/14/18 06:00 Alkaline Phosphatase 73 U/L (34-104) 01/14/18 06:00 C-Reactive Protein 0.7 mg/dL (0.0-0.9) 01/17/18 06:05 Total Protein 7.7 gm/dL (6.0-8.3) 01/14/18 06:00 Albumin 3.6 gm/dL (4.2-5.5) L 01/14/18 06:00 Globulin 4.1 gm/dL 01/14/18 06:00 Albumin/Globulin Ratio 0.9 (1.0-1.8) L 01/14/18 06:00 TSH 2.18 uIU/ml (0.34-5.60) 01/13/18 21:28 Urine Source CLEAN C 01/16/18 06:33 Urine Color YELLOW 01/16/18 06:33 Urine Clarity SLIGHTLY HAZY (CLEAR) 01/16/18 06:33 Urine pH 6.0 (4.6 - 8.0) 01/16/18 06:33 Ur Specific [place] <= 1.005 (1.005-1.030) 01/16/18 06:33 Urine Protein NEGATIVE mg/dL (NEGATIVE) 01/16/18 06:33 Urine Glucose (UA) NEGATIVE mg/dL (NEGATIVE) 01/16/18 06:33 Urine Ketones NEGATIVE mg/dL (NEGATIVE) 01/16/18 06:33 Urine Blood NEGATIVE (NEGATIVE) 01/16/18 06:33 Urine Nitrate NEGATIVE (NEGATIVE) 01/16/18 06:33 Urine Bilirubin NEGATIVE (NEGATIVE) 01/16/18 06:33 Urine Urobilinogen 0.2 E.U./dL (0.2 - 1.0) 01/16/18 06:33 Ur Leukocyte Esterase MODERATE (NEGATIVE) H 01/16/18 06:33 Urine RBC 0-2 /hpf (0-5) H 01/16/18 06:33 Urine WBC 6-10 /hpf (0-5) 01/16/18 06:33 Ur Epithelial Cells OCCASIONAL /lpf (FEW) 01/16/18 06:33 Urine Bacteria MODERATE /hpf (NONE SEEN) H 01/16/18 06:33 Urine Opiates Screen NEGATIVE (NEGATIVE) 01/16/18 06:33 Urine Methadone Screen NEGATIVE (NEGATIVE) 01/16/18 06:33 Ur Barbiturates Screen NEGATIVE (NEGATIVE) 01/16/18 06:33 Ur Tricyclics Screen NEGATIVE (NEGATIVE) 01/16/18 06:33 Ur Phencyclidine Scrn NEGATIVE (NEGATIVE) 01/16/18 06:33 Amphetamines Screen NEGATIVE (NEGATIVE) 01/16/18 06:33 U Methamphetamines Scrn NEGATIVE (NEGATIVE) 01/16/18 06:33 U Benzodiazepines Scrn NEGATIVE (NEGATIVE) 01/16/18 06:33 U Cocaine Metab Screen NEGATIVE (NEGATIVE) 01/16/18 06:33 U Cannabinoids Screen NEGATIVE (NEGATIVE) 01/16/18 06:33 Hepatitis A IgM Ab Negative (Negative) 01/14/18 09:20 Hep Bs Antigen Negative (Negative) 01/14/18 09:20 Hep B Core IgM Ab Negative (Negative) 01/14/18 09:20 Hepatitis C Antibody >11.0 s/co ratio (0.0-0.9) H 01/14/18 09:20 HIV 1&2 Antibody Screen NEGATIVE (NEG) 01/14/18 06:00 - Physical Exam Vitals and I&O: Vital Signs Temp 98.2 F 01/17/18 12:00 Pulse 62 01/17/18 12:00 Resp 20 01/17/18 12:00 BP 145/78 01/17/18 12:00 Pulse Ox 96 01/17/18 12:00 Intake & Output 01/16/18 01/17/18 01/17/18 18:59 06:59 18:59 Intake Total 500 250 Balance 500 250 Weight (lbs) 89.947 kg 89.403 kg Intake: Intake, IV Amount 50 cefTRIAXone 1 gm In 50 Sodium Chloride 0.9% 50 ml @ 100 mls/hr IV Q24HR [facility] Rx#:[id number] Oral 450 250 Other: # Voids 3 2 # Bowel Movements 0 Weight Source Bedscale Bedscale Active Medications: Current Medications Acetaminophen (Tylenol) 650 mg PO Q4H PRN PRN Reason: TEMP > 101.NTE 3GM/24HRS Stop: 03/15/18 05:33 Artificial Tears (Artificial Tears Ophth Soln) 1 drop EACH EYE BID [facility] Stop: 03/15/18 08:59 Last Admin: 01/17/18 10:16 Dose: 1 drop Carbamazepine (Tegretol) 200 mg PO TID [facility]; Protocol Stop: 03/15/18 08:59 Last Admin: 01/17/18 14:21 Dose: 200 mg Divalproex Sodium (Depakote Sprinkle) 375 mg PO BID [facility]; Protocol Stop: 03/15/18 08:59 Last Admin: 01/17/18 10:12 Dose: 375 mg Dextrose/Sodium Chloride (D5-0.45ns) 1,000 mls @ 100 mls/hr IV .Q10H [facility] Stop: 03/16/18 09:44 Last Admin: 01/17/18 03:39 Dose: 100 mls/hr Ceftriaxone Sodium 1 gm/ (Sodium Chloride) 50 mls @ 100 mls/hr IV Q24HR [facility] Stop: 03/17/18 09:59 Last Admin: 01/17/18 10:13 Dose: 100 mls/hr Memantine (Namenda) 10 mg PO DAILY [facility] Stop: 03/15/18 08:59 Last Admin: 01/17/18 10:13 Dose: 10 mg Mirtazapine (Remeron) 15 mg PO HS [facility]; Protocol Stop: 03/16/18 20:59 Last Admin: 01/16/18 20:43 Dose: 15 mg General: Alert, No acute distress HEENT: Atraumatic, PERRLA, EOMI Neck: Supple Cardiovascular: Regular rate Abdomen: Bowel sounds, Soft, no Tender, no Hepatomegaly, no Splenomegaly, no Distended, no Rebound, no Mass, no Guarding, no Drain, no Obese, no Catheter, no Other Assessment/Plan - Assessment Assessment: * Failure to Thrive * Hep C * UTI * Schizophrenia * Legal Blindness * DM Type 2 * Schizophrenia * Epilepsy - Plan Plan: * Continue current medications * Awaiting urine culture results * Awaiting ID evaluation * Further per consults * Obtain labs in am Nutritional Asmnt/Malnutr-PDOC - Dietary Evaluation Malnutrition Findings (Please click <Entered> for more info): Nutritional Asmnt/Malnutrition Start: 01/14/18 13: 49 Text: Status: Complete Freq: Protocol: Document 01/14/18 13:49 LALY (Rec: 01/14/18 14:00 LALY CHAHAL- [email or web address]) Nutritional Asmnt/Malnutrition Patient General Information Nutritional Screening High Risk Consult Diagnosis Failure to thrive Pertinent Medical Hx/Surgical Hx POST CONCUSSIONAL DISORDER, DYSPHAGIA, TYPE 2 DM, SEIZURE, LEGAL BLINDENESS, SCHIZOPHRENIA Subjective Information Consult received for failure to thrive. Per nursing notes, patient had loss of appetite x 1 week with weight loss of 20lbs in 1 week. Patient in bed at time of visit. Per nursing notes, patient is legally blind and nonverbal. Current Diet Order/ Nutrition Support Pureed Patient / S.O Not Indicated Pertinent Medications lactated ringer @125 ml/hr Pertinent Labs (01/14) albuimin 3.6 ( increased) Nutritional Hx/Data Height 1.7 m Height (Calculated Centimeters) 170.2 Current Weight (lbs) 89.358 kg Weight (Calculated Kilograms) 89.4 Weight (Calculated Grams) 06408.7 [place] Body Weight 148 % [place] Body Weight 133 Body Mass Index (BMI) 30.8 Recent Weight Change No Weight Status Obese GI Symptoms GI Symptoms None Last BM none noted since admission Difficult in: None Food Allergies No Cultural/Ethnic/Gnosticist Belief none indicated Usual diet at home unknown Skin Integrity/Comment: Amauri 13, Intact Estimated Nutritional Goals BEE in Kcals: Adj wt of IBW Calories/Kcals/Kg using Adj wt 72.8kg 25-30 kcal /kg Kcals Calculated ~4947-5953 kcal/day Protein: Adj wt of IBW Protein g/kg: using Adj wt 0.8-1 gm/kg Protein Calculated ~60-70gm/day Fluid: ml ~6399-3065 kcal/day or per MD d/t FTT Nutritional Problem 1. Problem Problem Inadequate oral intake related to Etiology decreased appetite aeb Signs/Symptoms: nursing note of 20lb weight loss in 1 week with poor appetite/intake 1 week. Intervention/Recommendation Comments 1. Continue pureed diet as tolerated by patient. 2. Provide full assistance with meals as needed to increase oral intake. 3. Current diet order comes with Health Shake at each meal and provides a total of ~3300 kcal per day. If oral intake does not improve, consider adding Ensure pudding with meals for additional calories. F/U in 3-5 days MR Expected Outcomes/Goals Expected Outcomes/Goals Oral intake >75% of meals, weight stable or trend toward ideal body weight, nutrition related labs WNL, skin intact
--- NOTE | 2018-01-18 08:04 | Consultation ---
DATE OF CONSULTATION: 01/16/2018 INFECTIOUS CONSULTATION PRIMARY CARE PHYSICIAN: Dr. Rivas. HISTORY OF PRESENT ILLNESS: This is a 49-year-old male who was brought to the Emergency with complaint of lethargy and not able to thrive. The patient has been refusing his medication and the patient evaluated at ER workup shows UTI. Infectious consultation was called for further treatment. PAST MEDICAL HISTORY: Visual impairment, joint contractures, seizures, type 2 diabetes. ALLERGIES: None. SOCIAL HISTORY: Nonsmoker. PAST SURGICAL HISTORY: Some kind of unknown abdominal surgery. FAMILY HISTORY: A 14-point review of system negative. PHYSICAL EXAMINATION: GENERAL: Young male. VITAL SIGNS: Temperature 97, pulse 82, respiration 18, blood pressure 129/90. HEENT: Mild pallor, no icterus or plaque. NECK: Supple. LUNGS: Breath sounds bilaterally. CARDIOVASCULAR: S1. ABDOMEN: Soft, bowel sounds present. LYMPHATICS: No cervical lymph nodes. UA positive for UTI. LABORATORY DATA: Cultures are pending. White count is normal. DIAGNOSES: Anorexia, depression, psych evaluation. The patient started on Rocephin for UTI. Hep C antibody test positive. We will check the ultrasound liver. Diabetes, Accu-Chek. Rest of the care as ordered in CPOE. Thank you, Dr. Rivas, for this consultation. JOB# [id number]
== END 2018-01-17 21:23 | DRG 70 ==
LOC: ER 19:46 → MSI 23:59
PROVIDERS: ADMIT Preventive Medicine Preventive Medicine/Occupational Environmental Medicine; ATTEND Preventive Medicine Preventive Medicine/Occupational Environmental Medicine
DX: G93.41 Metabolic encephalopathy (principal); G82.50 Quadriplegia, unspecified; N39.0 Urinary tract infection, site not specified; E46 Unspecified protein-calorie malnutrition; R62.7 Adult failure to thrive; F07.81 Postconcussional syndrome; F20.9 Schizophrenia, unspecified; G40.909 Epilepsy, unspecified, not intractable, without status epilepticus; E11.9 Type 2 diabetes mellitus without complications; H54.8 Legal blindness, as defined in USA; B19.20 Unspecified viral hepatitis C without hepatic coma; M24.562 Contracture, left knee; F29 Unspecified psychosis not due to a substance or known physiological condition; F32.9 Major depressive disorder, single episode, unspecified; M24.561 Contracture, right knee; E88.09 Other disorders of plasma-protein metabolism, not elsewhere classified; Z86.19 Personal history of other infectious and parasitic diseases; Z68.30 Body mass index [BMI] 30.0-30.9, adult
CPT/HCPCS: 36415-UA; 76700-TC; 80048-TC; 80053-TC; 80074-90; 80307; 81001-TC; 83735-TC; 84100-TC; 84443-TC; 85007-TC; 85025-TC; 85652-TC; 86141-TC; 86703-TC; 86803-90; 87086-90; J0696; Z7610